=== PATIENT | female | born 1935 | race Caucasian/White ===

== ENCOUNTER 2018-12-09 19:22 | Emergency (ER) | payer OTHER ==
[~2018-12-09] VITALS: Ht 157.5 cm; Wt 41.3 kg
[2018-12-09] MEDS ORDERED: DILTIAZEM ER120 MG (20:05)
[2018-12-09] MEDS ORDERED: LEVOXYL50 MCG (20:06)
[2018-12-09] MEDS ORDERED: COZAAR25 MG (20:06)
[2018-12-09] MEDS ORDERED: ATORVASTATIN CA10 MG (20:06)
[2018-12-09] MEDS ORDERED: MEDROLPACK PO (23:07)
[2018-12-09] MEDS ORDERED: CETIRIZINE HCL10 M1 PO (23:07)
== END 2018-12-09 23:24 | disposition home or self-care (01) ==
LOC: ER 19:22
DX: L20.89 Other atopic dermatitis (principal)